=== PATIENT | male | born 1990 | race American Indian/Alaskan Native ===

== ENCOUNTER 2018-09-21 11:50 | Emergency (ER) | payer OTHER ==
--- NOTE | 2018-09-21 13:38 | Cat Scan Report ---
PROCEDURE: CT HEAD/BRAIN WO CON TECHNIQUE: Computerized tomography of the head was performed without contrast material. CT DOSE LENGTH PRODUCT: 1048.5 mGycm HISTORY: Head Trauma COMPARISONS: None . FINDINGS: No CT evidence of intracranial mass, hemorrhage, acute territorial infarction, or hydrocephalus. Intr acranial arteries are symmetric in density. There is significant right periorbital soft tissue swelli ng and deformity of the right globe. Extensive facial fractures are noted. These are not fully evalua jenny on this exam. IMPRESSION: No CT evidence of acute intracranial abnormality. There are facial fractures noted. There is also deformity of the right globe. Correlate with CT maxil lofacial and ophthalmologic exam This document is electronically signed by Karena Mclaughlin MD., September 21 2018 01:35:37 PM ET
--- NOTE | 2018-09-21 13:44 | Cat Scan Report ---
PROCEDURE: CT ORBIT/EAR/FOSSA WO CON TECHNIQUE: Computerized axial tomography of the orbits was performed without contrast material. Auto mated exposure control, adjustment of mA and/or kV according to patient size, or iterative reconstruc tion dose optimization techniques were utilized. CT DOSE LENGTH PRODUCT: 414.4 mGycm HISTORY: head injury COMPARISONS: None FINDINGS: There is extensive right periorbital soft tissue swelling. There is hyperdensity and deformity of the right globe, presumed to be related to the acute trauma. There are comminuted fractures of the right medial orbital wall and right orbital floor. The orbital floor is depressed by approximately 5 mm. There are extensive bilateral nasal bone fractures. Right n mamta bone fractures are mildly displaced. The left nasal bone. Fractures are more displaced, with yulissa roximately 5 mm medial displacement of the larger fragment. There are also fracture lines through the anterior and medial allen of the right maxillary sinus. The temporomandibular joints are intact bilaterally. There is fluid within the right maxillary sinus and bilateral ethmoid sinuses. The mastoid air cells are aerated. IMPRESSION: CT findings are compatible with rupture of the right globe. Extensive right facial fractures are pres ent, including fractures of the medial and inferior orbital allen as well as the medial and anterior allen of the maxillary sinus. Bilateral nasal bone fractures are present. Findings were discussed wit jude Sargent by telephone at 12:38 PM central standard time on 09/21/2018. This document is electronically signed by Karena Mclaughlin MD., September 21 2018 01:42:58 PM ET
[2018-09-21] MEDS ORDERED: NACL 0.9% 1000 ML 1,000 ML IV ONE (13:59)
[2018-09-21 14:51] LABS: Basophils % (Auto) 0.4 % (0.0-1.8); Eosinophils % (Auto) 0.2 % (0.0-4.3); Hematocrit 40.6 % (35.5-45.6); Hemoglobin 13.2 gm/dl (11.8-15.2); Lymphocytes % (Auto) 10.8 % (13.4-35.0); Mean Corpuscular HGB Conc 32 % (32-34); Mean Corpuscular Volume 86 fl (84-94); Monocytes # (Auto) 0.6 K/mm3 (0.0-0.8); Monocytes % (Auto) 6.5 % (0.0-7.3); Platelet Count 241 K/mm3 (140-440)
[2018-09-21] MEDS ORDERED: ceFAZolin 2 GM in NACL 0.9% 100 ML IV ONE (15:00)
[2018-09-21 15:02] LABS: INR 1.05 (0.87-1.13)
[2018-09-21 15:03] LABS: Partial Thromboplastin Time 29.8 Sec. (24.2-36.6)
[2018-09-21 15:09] LABS: Alanine Aminotransferase 36 units/L (7-56); Albumin 4.3 g/dL (3.9-5); BUN/Creatinine Ratio 13; Blood Urea Nitrogen 12 mg/dL (9-20); Calcium 9.3 mg/dL (8.4-10.2); Hemolysis Index 17
[2018-09-21 15:16] LABS: Bilirubin,Direct < 0.2 mg/dL (0-0.2)
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
[2018-09-21 16:18] VITALS: BP 160/77
== END 2018-09-21 16:17 | disposition other institution (70) ==
LOC: ED 11:50
DX: S02.81XA Fracture of other specified skull and facial bones, right side, initial encounter for closed fracture (principal); S05.31XA Ocular laceration without prolapse or loss of intraocular tissue, right eye, initial encounter; W22.8XXA Striking against or struck by other objects, initial encounter; Y93.89 Activity, other specified; Y92.149 Unspecified place in prison as the place of occurrence of the external cause; Y99.8 Other external cause status
CPT/HCPCS: 36415; 70450; 70480; 80048; 80076; 83735; 85025; 85610; 85730; 96365; 99291; J0690; J7030